=== PATIENT | male | born 2000 | race Hispanic/Latino ===

== ENCOUNTER 2018-09-27 03:58 | Emergency (ER) | payer SELFPAY ==
[2018-09-27 04:45] LABS: Bilirubin Negative (Negative); Blood, Urine Negative (Negative); Clarity Clear (Clear); Glucose, Urine (Dipstick) Normal (Negative); Leukocyte Negative Leu/uL (Negative); Nitrite Negative (Negative); Protein, Urine (Dipstick) Negative (Neg-Trace); Urobilinogen Normal mg/dL (Less than 2)
[2018-09-27 04:45] LABS: #Eosinphils 0.1 thou/uL (0.0-0.7); #Lymphocytes 2.6 thou/uL (1.20-3.40); #Monocytes 0.5 thou/uL (0.11-0.59); #Neutrophils 2.9 thou/uL (1.40-6.50); %Basophils 0.4 % (0.0-1.0); %Eosinophils 0.8 % (0.0-10.0); %Lymphocytes 42.9 % (28.0-48.0); %Monocytes 8.4 % (0.0-4.0); %Neutrophils 47.4 % (31.0-61.0); Hemoglobin 14.5 g/dL (14.0-18.0); Mean Corpuscular HGB CONC 35.4 g/dL (32.0-36.0); Mean Corpuscular Hemoglobin 30.5 pg (25.0-35.0); Mean Corpuscular Volume 85.9 fL (78.0-98.0); Mean Platelet Volume 8.3 fL (7.4-10.4); Platelet Count 204 thou/uL (130-400); RBC Distribution Width 11.8 % (11.5-14.5); Red Blood Cell (RBC) Count 4.75 mill/uL (4.00-5.20); White Blood Cell (WBC) Count 6.2 thou/uL (4.8-10.8)
[2018-09-27 05:07] LABS: ALT (SGPT) 18 U/L (8-55); AST (SGOT) 15 U/L (5-34); Albumin 4.6 g/dL (3.5-5.0); Alkaline Phosphatase 73 U/L (Less than 750); Anion Gap 12 mmol/L (10-20); BUN (Urea Nitrogen) 12 mg/dL (8.9-20.6); Bilirubin, Total 0.4 mg/dL (0.2-1.2); Calc. Creatinine Clearance 0 mL/min (70-130); Calcium 9.5 mg/dL (7.8-10.44); Carbon Dioxide 24 mmol/L (22-29); Chloride 105 mmol/L (98-107); Estimated GFR-MDRD Greater than 90; Globulin 2.7 g/dL (2.4-3.5); Glucose 99 mg/dL (70-105); Potassium 3.5 mmol/L (3.5-5.1); Protein, Total 7.3 g/dL (6.0-8.3); Sodium 137 mmol/L (136-145)
[2018-09-27 06:17] LABS: Acetaminophen Less than 6.0 mcg/mL (10.0-30.0); Alcohol Less than 10 mg/dL (Less than 10); Salicylate Less than 8.0 mg/dL (15.0-30.0)
[2018-09-27 07:18] LABS: Amphetamine Not Detected (NotDetected); Barbiturates Screen Not Detected (NotDetected); Benzodiazepine Screen Not Detected (NotDetected); Cocaine Metabolite Screen Not Detected (NotDetected); Medtox Control Line Valid? VALID (VALID); Medtox Reader # READER 1; Methadone Not Detected (NotDetected); Methamphetamine Not Detected (NotDetected); Opiate Screen Not Detected (NotDetected); Oxycodone Screen Not Detected (NotDetected); Phencyclidine (PCP) Not Detected (NotDetected); THC/Cannabinoid Screen Not Detected (NotDetected); Tricyclic Screen Not Detected (NotDetected)
== END 2018-09-27 07:24 | disposition home or self-care (01) ==
LOC: ERS 03:58
DX: F43.0 Acute stress reaction (principal)
CPT/HCPCS: 36415; 80053; 80306; 80307; 81003; 85025; 99283